=== PATIENT | female | born 1945 | race Native Hawaiian/Other Pacific Islander ===

== ENCOUNTER 2016-12-09 11:49 | Outpatient (CLI) | payer OTHER ==
[~2016-12-09 11:49] MED LIST: ALBU90AE13 INH; ASPIRIN ADULT L81 MG OR; AZEL137S; CLOTCRE5 EX; DICL1GEL2 TOP; DIPH25CA90 PO; HYDROCHLOROT12.5 M1 PO; LIPITOR20 MG PO; MEDROL DOSEPAK4 MG OR; METO50TA63 PO; NEXIUM40 M1 PO; QVAR80 MCG IN; RHINOCORT; SINGULAIR10 MG PO; Z-PAK PO
== END 2016-12-09 19:22 | disposition home or self-care (01) ==
LOC: RAD 11:49
DX: J40 Bronchitis, not specified as acute or chronic (principal)

== ENCOUNTER 2017-07-20 09:21 | Outpatient (CLI) | payer OTHER | END 2017-07-20 18:57 | disposition home or self-care (01) | LOC: RAD 09:21 | DX: M25.552 Pain in left hip (principal) ==

== ENCOUNTER 2017-12-17 14:14 | Outpatient (CLI) | payer OTHER | END 2017-12-17 15:20 | disposition home or self-care (01) | LOC: CT 14:14 | DX: J32.8 Other chronic sinusitis (principal) ==

== ENCOUNTER 2021-08-26 08:00 | Outpatient (CLI) | payer OTHER | END 2021-08-26 21:46 | disposition home or self-care (01) | LOC: RAD 08:00 | PROVIDERS: ATTEND Physician Assistant | DX: M25.512 Pain in left shoulder (principal) ==

== ENCOUNTER 2022-05-13 07:55 | Outpatient (CLI) | payer OTHER ==
[2022-05-13 08:28] LABS: PLATELET COUNT 182 K/uL (152-353)
== END 2022-05-13 19:01 | disposition home or self-care (01) ==
LOC: LABW 07:55
PROVIDERS: ATTEND Internal Medicine
DX: N18.2 Chronic kidney disease, stage 2 (mild) (principal)
CPT/HCPCS: 36415; 80053; 81002; 82043; 82306; 82330; 82550; 82570; 83735; 83970; 84100; 84156; 84550; 85027

== ENCOUNTER 2022-12-04 09:05 | Outpatient (CLI) | payer OTHER | END 2022-12-04 22:25 | disposition home or self-care (01) | LOC: RAD 09:05 | PROVIDERS: ATTEND Physician Assistant | DX: M25.551 Pain in right hip (principal); M54.59 Other low back pain ==